=== PATIENT | male | born 1975 | race Caucasian/White ===

== ENCOUNTER 2016-11-09 10:31 | Inpatient (IN) | payer OTHER ==
[2016-11-09 10:55] VITALS: BMI 33.0
--- NOTE | 2016-11-09 13:52 | HP ---
COWS - Scale Resting Pulse: 1= [place] 81-100 Sweatin= Chills/Flushing Restless Observation: 3= Extraneous Movement Pupil Size: 2= Moderately Dilated Bone or Joint Aches: 4=Acute Joint/Muscle Pain Runny Nose/ Eye Tearin= Nasal Congestion GI Upset > 30mins: 1= Stomach Cramp Tremor Observation: 1= Tremor [place], Not Seen Yawning Observation: 2= >3x During Session Anxiety or Irritability: 2=Irritable/Anxious Goose Flesh Skin: 0=Smooth Skin COWS Score: 18 Admission ROS BHS - HPI Chief Complaint: DETOX TX FOR OPIOID DEPENDENCE Allergies/Adverse Reactions: Allergies Allergy/AdvReac Type Severity Reaction Status Date / Time No Known Allergies Allergy Verified 11/09/16 11:09 History of Present Illness: 41 Y/O MALE WITH A HX OF PERCOCET AND OXYCONTIN DEPENDENCE SEEKING DETOX TX Exam Limitations: No Limitations - Ebola screening Have you traveled outside of the country in the last 21 days: No Have you had contact with anyone from an Ebola affected area: No Have you been sick,other than usual withdrawal symptoms: No Do you have a fever: No - Review of Systems Constitutional: Chills, Loss of Appetite, Night Sweats, Changes in sleep EENT: reports: Blurred Vision (WEARS GLASSES), Tearing, Nose Congestion Respiratory: reports: No Symptoms reported Cardiac: reports: Lightheadedness (DUE TO WITHDAWAL SX) GI: reports: Nausea, Poor Appetite, Poor Fluid Intake, Vomiting : reports: No Symptoms Reported Musculoskeletal: reports: Back Pain, Joint Pain, Muscle Pain, Neck Pain Integumentary: reports: No Symptoms Reported Neuro: reports: Numbness, Tingling, Dizziness Endocrine: reports: No Symptoms Reported Hematology: reports: No Symptoms Reported Psychiatric: reports: Orientated x3, Anxious, Depressed Other Systems: Reviewed and Negative Patient History - Patient Medical History Hx Anemia: No Hx Asthma: No Hx Chronic Obstructive Pulmonary Disease (COPD): No Hx Cancer: No Hx Cardiac Disorders: No Hx Congestive Heart Failure: No Hx Hypertension: No Hx Hypercholesterolemia: No Hx Pacemaker: No HX Cerebrovascular Accident: No Hx Seizures: No Hx Dementia: No Hx Diabetes: Yes (NIDDM) Hx Gastrointestinal Disorders: Yes (acid reflux-PREVACID) Hx Liver Disease: No Hx Genitourinary Disorders: No Hx Sexually Transmitted Disorders: No (DENIES) Hx Renal Disease (ESRD): No Hx Thyroid Disease: No Hx Human Immunodeficiency Virus (HIV): (NEGATIVE HX) Hx Hepatitis C: No Hx Depression: Yes (ON SEROQUEL) Hx Suicide Attempt: No (DENIES) Hx Bipolar Disorder: No Hx Schizophrenia: No - Patient Surgical History Past Surgical History: No Hx Neurologic Surgery: No Hx Cataract Extraction: No Hx Cardiac Surgery: No Hx Lung Surgery: No Hx Breast Surgery: No Hx Breast Biopsy: No Hx Abdominal Surgery: No Hx Appendectomy: No Hx Cholecystectomy: No Hx Genitourinary Surgery: No Hx Orthopedic Surgery: No Anesthesia Reaction: No - PPD History Previous Implant?: Yes Documented Results: Negative w/proof Implanted On Prior [facility] Admission?: Yes Date: 11/10/15 Results: 0 mm PPD to be Administered?: Yes - Reproductive History Patient is a Female of Child Bearing Age (11 -55 yrs old): No (MALE) - Smoking Cessation Smoking history: Current every day smoker Have you smoked in the past 12 months: Yes Aproximately how many cigarettes per day: 20 Hx Chewing Tobacco Use: No (past history) Initiated information on smoking cessation: Yes 'Breaking Loose' booklet given: 11/09/16 - Substance & Tx. History Hx Substance Use: Yes (PERCOCETS/OXY/MARIJUANA) Substance Use Type: Marijuana, Opiates Hx Substance Use Treatment: Yes ([facility]-DETOX) - Substances Abused Percocet Route: Oral Frequency: Daily Amount used: 15 tabs. (30 mg.) Age of first use: 26 Date of Last Use: 11/09/16 Marijuana Route: Smoking Frequency: Daily Amount used: $40 Age of first use: 15 Date of Last Use: 11/09/16 Family Disease History - Family Disease History Family Disease History: Other: Father (ALCOHOL), Mother (DSA) Admission Physical Exam BHS - Vital Signs Vital Signs: Vital Signs - 24 hr 11/09/16 10:48 Temperature 97.3 F L Pulse Rate 97 H Respiratory 20 Rate Blood Pressure 119/75 - Physical General Appearance: Yes: Moderate Distress, Irritable, Anxious HEENTM: Yes: EOMI, Normocephalic, CRISTOBAL, Pharynx Normal, Nasal Congestion, Rhinorrhea Respiratory: Yes: Chest Non-Tender, Lungs Clear, Normal Breath Sounds, No Respiratory Distress Neck: Yes: Supple, Trachea in good position Breast: Yes: Breast Exam Deferred Cardiology: Yes: Regular Rhythm, Regular Rate, S1, S2 Abdominal: Yes: Normal Bowel Sounds, Non Tender, Soft Genitourinary: Yes: Other (N/C) Musculoskeletal: Yes: full range of Motion, Gait Steady Extremities: Yes: Normal Range of Motion, Non-Tender Neurological: Yes: rag inspector II-XII NML intact, Fully Oriented, Alert, Motor Strength 5/5 Integumentary: Yes: Dry, Warm Lymphatic: Yes: Within Normal Limits - Diagnostic (1) Neck pain Current Visit: Yes Status: Acute Comment: PT STATES PAINFULL WHEN DETOXING (2) Nicotine dependence Current Visit: Yes Status: Acute Qualifiers: Nicotine product type: cigarettes Substance use status: in withdrawal Qualified Code(s): F17.213 - Nicotine dependence, cigarettes, with withdrawal (3) Opioid dependence with withdrawal Current Visit: Yes Status: Acute (4) Cannabis dependence, uncomplicated Current Visit: Yes Status: Acute (5) Shoulder pain, right Current Visit: Yes Status: Acute Qualifiers: Chronicity: acute Qualified Code(s): M25.511 - Pain in right shoulder Comment: STATES PAIN ESPECIALLY WHEN DETOXING Cleared for Admission S - Detox or Rehab [facility] Level of Care: Medically Managed Detox Regimen/Protocol: Methadone S Breath Alcohol Content Breath Alcohol Content: 0 Urine Drug Screen - Results Drug Screen Negative: No Urine Drug Screen Results: THC-Marijuana, OXY-Oxycodone
[2016-11-09] MEDS ORDERED: guaiFENesin/D-METHORPHAN HB 10 ML UNIT-DOSE CUPS PO PRN (14:00)
[2016-11-09] MEDS ORDERED: IBUPROFEN 400 MG TABLET (FP) PO PRN (14:00)
[2016-11-09] MEDS ORDERED: MAGNESIUM CITRATE 300 ML BOTTLE PO PRN (14:00)
[2016-11-09] MEDS ORDERED: hydrOXYzine PAMOATE 25 MG CAPSULE (FP) PO PRN (14:00)
[2016-11-09] MEDS ORDERED: METHADONE HCL 10 MG TABLET (FOR DETOX USE ONLY) PO ONE ×2 (14:00→23:00)
[2016-11-09] MEDS ORDERED: ACETAMINOPHEN 325 MG TABLET (FP) PO PRN (14:00)
[2016-11-09] MEDS ORDERED: MAGNESIUM HYDROX 2400MG/30ML ORAL SUSPENSION 30 ML CUP PO PRN (14:00)
[2016-11-09] MEDS ORDERED: P-EPHED 60MG/TRIPROLIDI 2.5MG TABLET PO PRN (14:00)
[2016-11-09] MEDS ORDERED: LOPERAMIDE HCL 2 MG CAPSULE PO PRN (14:00)
[2016-11-09] MEDS ORDERED: MAG HYDROX/AL HYDROX/SIMETH 30 ML UNIT-DOSE CUP PO PRN (14:00)
[2016-11-09] MEDS ORDERED: MENTHOL/PHENOL 1 EACH UD MM PRN (14:00)
[2016-11-09] MEDS: diazePAM 5 MG TABLET PO PRN ×2 (14:30→18:58)
[2016-11-09] MEDS: NICOTINE 21 MG/24 HOURS TOPICAL PATCH TD SCH (14:33)
[2016-11-09] MEDS ORDERED: INSULIN (NOVOLOG) ASPART 100 UNITS/ML 10ML VIAL ONE ×2 (17:08→20:58)
[2016-11-09] MEDS: glipiZIDE 5 MG TABLET (FP) PO SCH (17:14)
[2016-11-09] MEDS: metFORMIN HCL 500 MG TABLET (FP) PO SCH (17:14)
[2016-11-09] MEDS: INSULIN SLIDING SCALE (NOVOLOG) 1 VIAL SQ SCH ×2 (17:15→22:40)
[2016-11-09 20:10] LABS: URINE APPEARANCE CLEAR; URINE BILIRUBIN NEGATIVE (NEGATIVE); URINE BLOOD NEGATIVE (NEGATIVE); URINE COLOR STRAW; URINE GLUCOSE (UA) 3+ (NEGATIVE); URINE KETONE TRACE (NEGATIVE); URINE LEUK ESTERASE NEGATIVE (NEGATIVE); URINE NITRITE NEGATIVE (NEGATIVE); URINE PROTEIN NEGATIVE (NEGATIVE); URINE UROBILINOGEN NEGATIVE E.U./dl (0.2-1.0)
--- NOTE | 2016-11-09 22:21 | PN ---
BHS Progress Note Note: received nurse call requests bgm order continue detox
[2016-11-09] MEDS: THIAMINE HCL 100 MG TABLET (FP) PO SCH (22:39)
[2016-11-10] MEDS: diazePAM 5 MG TABLET PO PRN ×4 (05:41→22:27)
[2016-11-10] MEDS: glipiZIDE 5 MG TABLET (FP) PO SCH (06:31)
[2016-11-10] MEDS: metFORMIN HCL 500 MG TABLET (FP) PO SCH ×2 (06:31→17:07)
[2016-11-10] MEDS: INSULIN SLIDING SCALE (NOVOLOG) 1 VIAL SQ SCH ×4 (07:49→22:27)
[2016-11-10] MEDS ORDERED: CYCLOBENZAPRINE HCL 10 MG TABLET (FP) PO ONE (09:17)
[2016-11-10] MEDS ORDERED: METHADONE HCL 10 MG TABLET (FOR DETOX USE ONLY) PO ONE (10:00)
[2016-11-10 10:19] LABS: MCH 27.3 pg (25.7-33.7); MCHC 33.7 g/dl (32.0-35.9); MEAN PLT VOLUME 8.7 fl (7.5-11.1); PLATELET COUNT 305 K/MM3 (134-434); RDW 13.3 % (11.9-15.9); WHITE BLOOD COUNT 12.7 K/mm3 (4.0-10.0)
[2016-11-10 10:28] LABS: ALBUMIN 3.9 g/dl (3.4-5.0); ALK PHOS 86 U/L (45-117); ANION GAP 11 (8-16); BILIRUBIN,TOTAL 0.3 mg/dL (0.2-1.0); CALCIUM 9.1 mg/dL (8.5-10.1); CO2 23 mmol/L (21-32); SGOT/AST 6 U/L (15-37); SGPT/ALT 17 U/L (12-78); TOT PROT 7.2 g/dl (6.4-8.2)
[2016-11-10] MEDS: cloNIDine HCL 0.1 MG TABLET PO SCH ×2 (10:28→22:26)
[2016-11-10] MEDS: PRENATAL VITAMINS W/ FOLIC ACID TABLET (FP) PO SCH (10:28)
[2016-11-10] MEDS: NAPROXEN 500 MG TABLET (FP) PO SCH ×2 (10:28→22:26)
[2016-11-10] MEDS: NICOTINE 21 MG/24 HOURS TOPICAL PATCH TD SCH (10:28)
[2016-11-10] MEDS: PARoxetine HCL 20 MG TABLET (FP) PO SCH (10:29)
[2016-11-10] MEDS: NICOTINE POLACRILEX 4 MG GUM BUC PRN ×3 (11:03→22:31)
--- NOTE | 2016-11-10 11:13 | EKG ---
Test Reason : Blood Pressure : / mmHG Vent. Rate : 093 BPM Atrial Rate : 093 BPM P-R Int : 164 ms QRS Dur : 090 ms QT Int : 348 ms P-R-T Axes : 051 046 062 degrees QTc Int : 432 ms NORMAL SINUS RHYTHM EARLY REPOLARIZATION WHEN COMPARED WITH ECG OF 09-NOV-2016 14:33, SINUS RHYTHM HAS REPLACED JUNCTIONAL RHYTHM Confirmed by MARCOS LORENZANA MD ([id number]) on 11/10/2016 11:13:10 AM Referred By: Db Richardson Confirmed By:MARCOS LORENZANA MD
--- NOTE | 2016-11-10 11:15 | EKG ---
Test Reason : Blood Pressure : / mmHG Vent. Rate : 090 BPM Atrial Rate : 091 BPM P-R Int : 000 ms QRS Dur : 084 ms QT Int : 328 ms P-R-T Axes : 000 044 076 degrees QTc Int : 401 ms POOR DATA QUALITY, INTERPRETATION MAY BE ADVERSELY AFFECTED NONSPECIFIC ST ABNORMALITY NO PREVIOUS ECGS AVAILABLE Confirmed by MARCOS LORENZANA MD ([id number]) on 11/10/2016 11:14:57 AM Referred By: Db Richardson Confirmed By:MARCOS LORENZANA MD
--- NOTE | 2016-11-10 11:25 | PN ---
S COWS - Scale Resting Pulse: 1= [place] 81-100 Sweatin= Chills/Flushing Restless Observation: 3= Extraneous Movement Pupil Size: 2= Moderately Dilated Bone or Joint Aches: 4=Acute Joint/Muscle Pain Runny Nose/ Eye Tearin= Nasal Congestion GI Upset > 30mins: 1= Stomach Cramp Tremor Observation of Outstretched Hands: 1= Tremor [place], Not Seen Yawning Observation: 2= >3x During Session Anxiety or Irritability: 2=Irritable/Anxious Goose Flesh Skin: 0=Smooth Skin COWS Score: 18 BHS Progress Note (SOAP) Subjective: ANXIETY,IRRITABILITY,MODERATE TO SEVERE NECK/RIGHT SHOULDER PAIN X 2 DAYS, INTERMITTENT SLEEP. Objective: 11/10/16 11:24 Vital Signs Temperature 97.6 F 11/10/16 09:55 Pulse Rate 88 11/10/16 09:55 Respiratory Rate 18 11/10/16 09:55 Blood Pressure 150/94 11/10/16 09:55 O2 Sat by Pulse Oximetry (%) Laboratory Last Values WBC 12.7 K/mm3 (4.0-10.0) H D 11/10/16 06:00 RBC 5.33 M/mm3 (4.00-5.60) 11/10/16 06:00 Hgb 14.6 GM/dL (11.7-16.9) 11/10/16 06:00 Hct 43.2 % (35.4-49) 11/10/16 06:00 MCV 81.0 fl (80-96) 11/10/16 06:00 MCHC 33.7 g/dl (32.0-35.9) 11/10/16 06:00 RDW 13.3 % (11.9-15.9) 11/10/16 06:00 Plt Count 305 K/MM3 (134-434) D 11/10/16 06:00 MPV 8.7 fl (7.5-11.1) 11/10/16 06:00 POC Glucometer 233 UNITS (()) 11/10/16 05:41 Urine Color Straw 11/09/16 13:00 Urine Appearance Clear 11/09/16 13:00 Urine pH 6.0 (5.0-8.0) 11/09/16 13:00 Ur Specific [place] 1.039 (1.001-1.035) H 11/09/16 13:00 Urine Protein Negative (NEGATIVE) 11/09/16 13:00 Urine Glucose (UA) 3+ (NEGATIVE) H 11/09/16 13:00 Urine Ketones Trace (NEGATIVE) H 11/09/16 13:00 Urine Blood Negative (NEGATIVE) 11/09/16 13:00 Urine Nitrite Negative (NEGATIVE) 11/09/16 13:00 Urine Bilirubin Negative (NEGATIVE) 11/09/16 13:00 Urine Urobilinogen Negative E.U./dl (0.2-1.0) 11/09/16 13:00 Ur Leukocyte Esterase Negative (NEGATIVE) 11/09/16 13:00 Assessment: 11/10/16 11:24 WITHDRAWAL SX Plan: CONTINUE DETOX NAPROSYN AND FLEXERIL DIRECTED.
[2016-11-10] MEDS ORDERED: INSULIN (NOVOLOG) ASPART 100 UNITS/ML 10ML VIAL ONE ×3 (11:48→23:00)
[2016-11-10 11:54] LABS: GLUCOSE,RANDOM 461 mg/dL (74-106)
--- NOTE | 2016-11-10 12:26 | CONSULT ---
[facility] Psychiatric Consult - Data Date of interview: 11/10/16 Admission source: [facility] Identifying data: Readmission to [facility] for this 41 y/o male seeking detox treatment on for opioid and marijuana dependence.Patient is ,a father of three,domiciled and employed. Substance Abuse History: - Smoking Cessation. Smoking history: Current every day smoker. Have you smoked in the past 12 months: Yes. Aproximately how many cigarettes per day: 20. Hx Chewing Tobacco Use: No (past history). Initiated information on smoking cessation: Yes. 'Breaking Loose' booklet given: . - Substance & Tx. History. Hx Substance Use: Yes (PERCOCETS/OXY/MARIJUANA) . Substance Use Type: Marijuana, Opiates. Hx Substance Use Treatment: Yes ( [facility]-DETOX). - Substances Abused. Percocet. Route: Oral. Frequency: Daily. Amount used: 15 tabs. (30 mg.). Age of first use: 26. Date of Last Use : 11/09/16. Marijuana. Route: Smoking. Frequency: Daily. Amount used: $ 40. Age of first use: 15. Date of Last Use: 11/09/16. Confirmed by patient in this ssession. Medical History: Diabetes mellitus,GERD and a history of inguinal herniorraphy. Psychiatric History: No history of psychiatric hospitalizations.Used to be followed at the [facility] in [place].Diagnosed with MDD, Anxiety Disorder and OCD as per self-report.Mr Herron admits to past exposure to lexapro,abilify,xanax,paxil and seroquel.Dropped out of OPD care for several years (except for xanax prescribed by his long time primary care physician).No history of suicide attempts.Moderate insomnia remains an ongoing issue. Physical/Sexual Abuse/Trauma History: Patient denies. Additional Comment: Urine Drug Screen Results: THC-Marijuana, OXY- Oxycodone.Noted. Mental Status Exam - Mental Status Exam Alert and Oriented to: Time, Place, Person Cognitive Function: Good Patient Appearance: Well Groomed Mood: Hopeful, Euthymic Affect: Appropriate, Normal Range Patient Behavior: Fatigued, Appropriate, Cooperative Speech Pattern: Clear, Appropriate Voice Loudness: Normal Thought Process: Intact, Goal Oriented Thought Disorder: Not Present Hallucinations: Denies Suicidal Ideation: Denies Homicidal Ideation: Denies Insight/Judgement: Fair Sleep: Poorly, Difficulty falling asleep Appetite: Good Muscle strength/Tone: Normal Gait/Station: Normal Psychiatric Findings - Problem List ([place] 1, 2,3) (1) Cannabis dependence, uncomplicated Current Visit: Yes Status: Acute (2) Nicotine dependence Current Visit: Yes Status: Acute Qualifiers: Nicotine product type: cigarettes Substance use status: in withdrawal Qualified Code(s): F17.213 - Nicotine dependence, cigarettes, with withdrawal (3) Opioid dependence with withdrawal Current Visit: Yes Status: Acute (4) MDD (major depressive disorder) Current Visit: Yes Status: Chronic (5) OCD (obsessive compulsive disorder) Current Visit: No Status: Acute (6) Benzodiazepine abuse Current Visit: No Status: Acute (7) Substance induced mood disorder Current Visit: Yes Status: Acute (8) Left inguinal hernia Current Visit: Yes Status: Chronic (9) Low back pain Current Visit: Yes Status: Chronic (10) Umbilical hernia Current Visit: No Status: Chronic - Initial Treatment Plan Initial Treatment Plan: Psychoeducation.Detoxification.Medications : paxil 20 mg po daily + seroquel 100 mg po hs (patient's request).Side effects/benefits discussed with the patient.He agrees with this plan.Observation.
[2016-11-10] MEDS: CYCLOBENZAPRINE HCL 10 MG TABLET (FP) PO SCH ×2 (13:08→22:26)
[2016-11-10] MEDS: QUEtiapine FUMARATE 100 MG TABLET (FP) PO SCH (22:26)
[2016-11-10] MEDS: THIAMINE HCL 100 MG TABLET (FP) PO SCH (22:26)
[2016-11-11] MEDS: glipiZIDE 5 MG TABLET (FP) PO SCH (06:14)
[2016-11-11] MEDS: metFORMIN HCL 500 MG TABLET (FP) PO SCH ×2 (06:14→17:23)
[2016-11-11] MEDS: CYCLOBENZAPRINE HCL 10 MG TABLET (FP) PO SCH ×3 (06:14→22:37)
[2016-11-11] MEDS: diazePAM 5 MG TABLET PO PRN ×4 (06:14→22:36)
[2016-11-11] MEDS ORDERED: INSULIN (NOVOLOG) ASPART 100 UNITS/ML 10ML VIAL ONE ×4 (06:17→21:14)
[2016-11-11] MEDS: NICOTINE POLACRILEX 4 MG GUM BUC PRN ×5 (06:19→21:25)
[2016-11-11] MEDS: INSULIN SLIDING SCALE (NOVOLOG) 1 VIAL SQ SCH ×4 (06:55→22:35)
[2016-11-11] MEDS ORDERED: METHADONE HCL 5 MG TABLET (FOR DETOX USE ONLY) PO ONE (10:00)
[2016-11-11] MEDS: PARoxetine HCL 20 MG TABLET (FP) PO SCH (10:21)
[2016-11-11] MEDS: cloNIDine HCL 0.1 MG TABLET PO SCH ×2 (10:21→22:37)
[2016-11-11] MEDS: NAPROXEN 500 MG TABLET (FP) PO SCH ×2 (10:21→22:37)
[2016-11-11] MEDS: NICOTINE 21 MG/24 HOURS TOPICAL PATCH TD SCH (10:21)
[2016-11-11] MEDS: PRENATAL VITAMINS W/ FOLIC ACID TABLET (FP) PO SCH (10:21)
--- NOTE | 2016-11-11 16:10 | PN ---
S COWS - Scale Resting Pulse: 1= [place] 81-100 Sweatin= Chills/Flushing Restless Observation: 0= Sits Still Pupil Size: 0= Normal to Room Light Bone or Joint Aches: 2= Severe Diffuse Aches Runny Nose/ Eye Tearin= Nasal Congestion GI Upset > 30mins: 0= None Tremor Observation of Outstretched Hands: 2= Slight Tremor Visible Yawning Observation: 1= 1-2x During Session Anxiety or Irritability: 1=Feels Anxious/Irritable Goose Flesh Skin: 3=Piloerection COWS Score: 12 S Progress Note (SOAP) Subjective: Sweating, Body aches, Tremors, Interrupted sleep. Objective: PT. A & O X 3, OBSERVED AMBULATING ON UNIT. NO SIGNS OF ACUTE INFECTION NOTED. 11/11/16 16:07 Vital Signs Temperature 97 F L 11/11/16 14:50 Pulse Rate 91 H 11/11/16 14:50 Respiratory Rate 18 11/11/16 14:50 Blood Pressure 129/80 11/11/16 14:50 O2 Sat by Pulse Oximetry (%) Laboratory Last Values WBC 12.7 K/mm3 (4.0-10.0) H D 11/10/16 06:00 RBC 5.33 M/mm3 (4.00-5.60) 11/10/16 06:00 Hgb 14.6 GM/dL (11.7-16.9) 11/10/16 06:00 Hct 43.2 % (35.4-49) 11/10/16 06:00 MCV 81.0 fl (80-96) 11/10/16 06:00 MCHC 33.7 g/dl (32.0-35.9) 11/10/16 06:00 RDW 13.3 % (11.9-15.9) 11/10/16 06:00 Plt Count 305 K/MM3 (134-434) D 11/10/16 06:00 MPV 8.7 fl (7.5-11.1) 11/10/16 06:00 Sodium 132 mmol/L (136-145) L 11/10/16 06:00 Potassium 4.5 mmol/L (3.5-5.1) 11/10/16 06:00 Chloride 98 mmol/L (98-107) 11/10/16 06:00 Carbon Dioxide 23 mmol/L (21-32) D 11/10/16 06:00 Anion Gap 11 (8-16) 11/10/16 06:00 BUN 15 mg/dL (7-18) D 11/10/16 06:00 Creatinine 1.0 mg/dL (0.7-1.3) 11/10/16 06:00 Creat Clearance w eGFR > 60 (>60) 11/10/16 06:00 POC Glucometer 317 UNITS (()) 11/11/16 11:32 Random Glucose 461 mg/dL (74-106) H* D 11/10/16 06:00 Calcium 9.1 mg/dL (8.5-10.1) 11/10/16 06:00 Total Bilirubin 0.3 mg/dL (0.2-1.0) D 11/10/16 06:00 AST 6 U/L (15-37) L D 11/10/16 06:00 ALT 17 U/L (12-78) D 11/10/16 06:00 Alkaline Phosphatase 86 U/L (45-117) 11/10/16 06:00 Total Protein 7.2 g/dl (6.4-8.2) 11/10/16 06:00 Albumin 3.9 g/dl (3.4-5.0) 11/10/16 06:00 Urine Color Straw 11/09/16 13:00 Urine Appearance Clear 11/09/16 13:00 Urine pH 6.0 (5.0-8.0) 11/09/16 13:00 Ur Specific [place] 1.039 (1.001-1.035) H 11/09/16 13:00 Urine Protein Negative (NEGATIVE) 11/09/16 13:00 Urine Glucose (UA) 3+ (NEGATIVE) H 11/09/16 13:00 Urine Ketones Trace (NEGATIVE) H 11/09/16 13:00 Urine Blood Negative (NEGATIVE) 11/09/16 13:00 Urine Nitrite Negative (NEGATIVE) 11/09/16 13:00 Urine Bilirubin Negative (NEGATIVE) 11/09/16 13:00 Urine Urobilinogen Negative E.U./dl (0.2-1.0) 11/09/16 13:00 Ur Leukocyte Esterase Negative (NEGATIVE) 11/09/16 13:00 RPR Titer Nonreactive (NONREACTIVE) 11/10/16 06:00 LABS NOTED. 11/11/16 16:10 Assessment: 11/11/16 16:09 WITHDRAWAL SYMPTOMS. Plan: CONTINUE DETOX. ADVISED PT. TO FOLLOW-UP WITH DREDGEMASTER / REHAB MEDICAL PROVIDER AFTER DISCHARGE FROM DETOX FOR GENERAL MEDICAL ASSESSMENT AND FOR ABNORMAL LAB VALUES AND FOR HISTORY OF DIABETES.
[2016-11-11] MEDS: QUEtiapine FUMARATE 100 MG TABLET (FP) PO SCH (22:37)
[2016-11-11] MEDS: THIAMINE HCL 100 MG TABLET (FP) PO SCH (22:37)
[2016-11-12] MEDS: diazePAM 5 MG TABLET PO PRN ×2 (05:52→10:47)
[2016-11-12] MEDS: CYCLOBENZAPRINE HCL 10 MG TABLET (FP) PO SCH ×3 (05:52→22:16)
[2016-11-12] MEDS: INSULIN SLIDING SCALE (NOVOLOG) 1 VIAL SQ SCH ×4 (07:58→22:15)
[2016-11-12] MEDS: metFORMIN HCL 500 MG TABLET (FP) PO SCH ×2 (07:58→16:30)
[2016-11-12] MEDS: glipiZIDE 5 MG TABLET (FP) PO SCH (08:01)
[2016-11-12] MEDS ORDERED: METHADONE HCL 5 MG TABLET (FOR DETOX USE ONLY) PO ONE (10:00)
[2016-11-12] MEDS: PRENATAL VITAMINS W/ FOLIC ACID TABLET (FP) PO SCH (10:43)
[2016-11-12] MEDS: cloNIDine HCL 0.1 MG TABLET PO SCH ×2 (10:44→22:16)
[2016-11-12] MEDS: NAPROXEN 500 MG TABLET (FP) PO SCH ×2 (10:44→22:16)
[2016-11-12] MEDS: PARoxetine HCL 20 MG TABLET (FP) PO SCH (10:44)
[2016-11-12] MEDS: NICOTINE 21 MG/24 HOURS TOPICAL PATCH TD SCH (10:44)
[2016-11-12] MEDS: NICOTINE POLACRILEX 4 MG GUM BUC PRN ×2 (10:44→17:46)
[2016-11-12] MEDS ORDERED: INSULIN (NOVOLOG) ASPART 100 UNITS/ML 10ML VIAL ONE ×2 (12:08→21:43)
--- NOTE | 2016-11-12 13:37 | PN ---
BHS Progress Note (SOAP) Subjective: Sweating,interrupted sleep,restless Objective: 11/12/16 13:36 Vital Signs - 8 hr 11/12/16 11/12/16 06:31 11:55 Temperature 96 F L 95.5 F L Pulse Rate 84 80 Respiratory 18 19 Rate Blood Pressure 124/79 112/70 Laboratory Tests 11/09/16 11/09/16 11/09/16 11:26 13:00 16:27 WBC RBC Hgb Hct MCV MCHC RDW Plt Count MPV Sodium Potassium Chloride Carbon Dioxide Anion Gap BUN Creatinine Creat Clearance w eGFR POC Glucometer 501 379 Random Glucose Calcium Total Bilirubin AST ALT Alkaline Phosphatase Total Protein Albumin Urine Color Straw Urine Appearance Clear Urine pH 6.0 Ur Specific [place] 1.039 H Urine Protein Negative Urine Glucose (UA) 3+ H Urine Ketones Trace H Urine Blood Negative Urine Nitrite Negative Urine Bilirubin Negative Urine Urobilinogen Negative Ur Leukocyte Esterase Negative RPR Titer 11/10/16 11/10/16 11/10/16 05:41 06:00 06:00 WBC 12.7 H D RBC 5.33 Hgb 14.6 Hct 43.2 MCV 81.0 MCHC 33.7 RDW 13.3 Plt Count 305 D MPV 8.7 Sodium 132 L Potassium 4.5 Chloride 98 Carbon Dioxide 23 D Anion Gap 11 BUN 15 D Creatinine 1.0 Creat Clearance w eGFR > 60 POC Glucometer 233 Random Glucose 461 H* D Calcium 9.1 Total Bilirubin 0.3 D AST 6 L D ALT 17 D Alkaline Phosphatase 86 Total Protein 7.2 Albumin 3.9 Urine Color Urine Appearance Urine pH Ur Specific [place] Urine Protein Urine Glucose (UA) Urine Ketones Urine Blood Urine Nitrite Urine Bilirubin Urine Urobilinogen Ur Leukocyte Esterase RPR Titer 11/10/16 11/10/16 11/10/16 06:00 11:20 16:26 WBC RBC Hgb Hct MCV MCHC RDW Plt Count MPV Sodium Potassium Chloride Carbon Dioxide Anion Gap BUN Creatinine Creat Clearance w eGFR POC Glucometer 259 217 Random Glucose Calcium Total Bilirubin AST ALT Alkaline Phosphatase Total Protein Albumin Urine Color Urine Appearance Urine pH Ur Specific [place] Urine Protein Urine Glucose (UA) Urine Ketones Urine Blood Urine Nitrite Urine Bilirubin Urine Urobilinogen Ur Leukocyte Esterase RPR Titer Nonreactive 11/10/16 11/11/16 11/11/16 21:31 06:13 11:32 WBC RBC Hgb Hct MCV MCHC RDW Plt Count MPV Sodium Potassium Chloride Carbon Dioxide Anion Gap BUN Creatinine Creat Clearance w eGFR POC Glucometer 277 227 317 Random Glucose Calcium Total Bilirubin AST ALT Alkaline Phosphatase Total Protein Albumin Urine Color Urine Appearance Urine pH Ur Specific [place] Urine Protein Urine Glucose (UA) Urine Ketones Urine Blood Urine Nitrite Urine Bilirubin Urine Urobilinogen Ur Leukocyte Esterase RPR Titer 11/11/16 11/11/16 11/12/16 16:33 21:02 05:51 WBC RBC Hgb Hct MCV MCHC RDW Plt Count MPV Sodium Potassium Chloride Carbon Dioxide Anion Gap BUN Creatinine Creat Clearance w eGFR POC Glucometer 230 241 199 Random Glucose Calcium Total Bilirubin AST ALT Alkaline Phosphatase Total Protein Albumin Urine Color Urine Appearance Urine pH Ur Specific [place] Urine Protein Urine Glucose (UA) Urine Ketones Urine Blood Urine Nitrite Urine Bilirubin Urine Urobilinogen Ur Leukocyte Esterase RPR Titer 11/12/16 12:06 WBC RBC Hgb Hct MCV MCHC RDW Plt Count MPV Sodium Potassium Chloride Carbon Dioxide Anion Gap BUN Creatinine Creat Clearance w eGFR POC Glucometer 273 Random Glucose Calcium Total Bilirubin AST ALT Alkaline Phosphatase Total Protein Albumin Urine Color Urine Appearance Urine pH Ur Specific [place] Urine Protein Urine Glucose (UA) Urine Ketones Urine Blood Urine Nitrite Urine Bilirubin Urine Urobilinogen Ur Leukocyte Esterase RPR Titer labs noted Assessment: 11/12/16 13:36 Withdrawal sx. Plan: Continue detox
[2016-11-12] MEDS: THIAMINE HCL 100 MG TABLET (FP) PO SCH (22:16)
[2016-11-12] MEDS: QUEtiapine FUMARATE 100 MG TABLET (FP) PO SCH (22:16)
[2016-11-13] MEDS: CYCLOBENZAPRINE HCL 10 MG TABLET (FP) PO SCH (05:34)
[2016-11-13] MEDS: metFORMIN HCL 500 MG TABLET (FP) PO SCH (06:30)
[2016-11-13] MEDS: glipiZIDE 5 MG TABLET (FP) PO SCH (08:36)
[2016-11-13] MEDS: INSULIN SLIDING SCALE (NOVOLOG) 1 VIAL SQ SCH (08:37)
[2016-11-13] MEDS ORDERED: METHADONE HCL 5 MG TABLET (FOR DETOX USE ONLY) PO ONE (10:00)
[2016-11-13] MEDS ORDERED: METHADONE HCL 10 MG TABLET (FOR DETOX USE ONLY) PO ONE (10:00)
[2016-11-13 10:11] VITALS: BP 119/80; PULSE 89; TEMP 97.7
[2016-11-13] MEDS: cloNIDine HCL 0.1 MG TABLET PO SCH (10:27)
[2016-11-13] MEDS: NICOTINE 21 MG/24 HOURS TOPICAL PATCH TD SCH (10:27)
[2016-11-13] MEDS: NAPROXEN 500 MG TABLET (FP) PO SCH (10:27)
[2016-11-13] MEDS: PARoxetine HCL 20 MG TABLET (FP) PO SCH (10:27)
[2016-11-13] MEDS: PRENATAL VITAMINS W/ FOLIC ACID TABLET (FP) PO SCH (10:27)
--- NOTE | 2016-11-13 16:57 | DS ---
[facility] Detox Discharge Summary Admission Date: 11/09/16 Discharge Date: 11/13/16 - History Present History: Cannabis Dependence, Opioid Dependence Additional Comments: ADVISED PATIENT TO FOLLOW-UP WITH [facility] / REHAB MEDICAL PROVIDER AFTER DISCHARGE FROM DETOX FOR GENERAL MEDICAL ASSESSMENT AND FOR ABNORMAL LAB VALUES. Pertinent Past History: DM. - Physical Exam Results Vital Signs: Vital Signs Temperature 97.7 F 11/13/16 10:09 Pulse Rate 89 11/13/16 10:09 Respiratory Rate 18 11/13/16 10:09 Blood Pressure 119/80 11/13/16 10:09 O2 Sat by Pulse Oximetry (%) Pertinent Admission Physical Exam Findings: WITHDRAWAL SYMPTOMS. Laboratory Last Values WBC 12.7 K/mm3 (4.0-10.0) H D 11/10/16 06:00 RBC 5.33 M/mm3 (4.00-5.60) 11/10/16 06:00 Hgb 14.6 GM/dL (11.7-16.9) 11/10/16 06:00 Hct 43.2 % (35.4-49) 11/10/16 06:00 MCV 81.0 fl (80-96) 11/10/16 06:00 MCHC 33.7 g/dl (32.0-35.9) 11/10/16 06:00 RDW 13.3 % (11.9-15.9) 11/10/16 06:00 Plt Count 305 K/MM3 (134-434) D 11/10/16 06:00 MPV 8.7 fl (7.5-11.1) 11/10/16 06:00 Sodium 132 mmol/L (136-145) L 11/10/16 06:00 Potassium 4.5 mmol/L (3.5-5.1) 11/10/16 06:00 Chloride 98 mmol/L (98-107) 11/10/16 06:00 Carbon Dioxide 23 mmol/L (21-32) D 11/10/16 06:00 Anion Gap 11 (8-16) 11/10/16 06:00 BUN 15 mg/dL (7-18) D 11/10/16 06:00 Creatinine 1.0 mg/dL (0.7-1.3) 11/10/16 06:00 Creat Clearance w eGFR > 60 (>60) 11/10/16 06:00 POC Glucometer 206 UNITS (()) 11/13/16 05:34 Random Glucose 461 mg/dL (74-106) H* D 11/10/16 06:00 Calcium 9.1 mg/dL (8.5-10.1) 11/10/16 06:00 Total Bilirubin 0.3 mg/dL (0.2-1.0) D 11/10/16 06:00 AST 6 U/L (15-37) L D 11/10/16 06:00 ALT 17 U/L (12-78) D 11/10/16 06:00 Alkaline Phosphatase 86 U/L (45-117) 11/10/16 06:00 Total Protein 7.2 g/dl (6.4-8.2) 11/10/16 06:00 Albumin 3.9 g/dl (3.4-5.0) 11/10/16 06:00 Urine Color Straw 11/09/16 13:00 Urine Appearance Clear 11/09/16 13:00 Urine pH 6.0 (5.0-8.0) 11/09/16 13:00 Ur Specific [place] 1.039 (1.001-1.035) H 11/09/16 13:00 Urine Protein Negative (NEGATIVE) 11/09/16 13:00 Urine Glucose (UA) 3+ (NEGATIVE) H 11/09/16 13:00 Urine Ketones Trace (NEGATIVE) H 11/09/16 13:00 Urine Blood Negative (NEGATIVE) 11/09/16 13:00 Urine Nitrite Negative (NEGATIVE) 11/09/16 13:00 Urine Bilirubin Negative (NEGATIVE) 11/09/16 13:00 Urine Urobilinogen Negative E.U./dl (0.2-1.0) 11/09/16 13:00 Ur Leukocyte Esterase Negative (NEGATIVE) 11/09/16 13:00 RPR Titer Nonreactive (NONREACTIVE) 11/10/16 06:00 LABS NOTED. - Treatment Hospital Course: Detox Protocol Followed, Detoxed Safely, Responded well, Discharged Condition Good - Medication Discharge Medications: Ambulatory Orders Trazodone HCl [Desyrel -] 100 mg PO HS #30 tablet 11/09/15 Glipizide [Glucotrol -] 5 mg PO DAILY 11/09/16 Lansoprazole [Prevacid -] 30 mg PO DAILY 11/09/16 Metformin HCl [Glucophage -] 500 mg PO BID 11/09/16 Quetiapine Fumarate [Seroquel -] 100 mg PO HS 11/09/16 Paroxetine HCl [Paxil] 20 mg PO HS #30 tablet 11/10/16 Quetiapine Fumarate [Seroquel] 100 mg PO HS #30 tablet 11/10/16 - Diagnosis (1) Cannabis dependence Status: Acute (2) Neck pain Status: Acute (3) Nicotine dependence Status: Chronic Qualifiers: Nicotine product type: cigarettes Substance use status: uncomplicated Qualified Code(s): F17.210 - Nicotine dependence, cigarettes, uncomplicated (4) Opioid dependence with withdrawal Status: Acute (5) Substance induced mood disorder Status: Acute - AMA Did Patient Leave Against Medical Advice: No
[2016-11-14] MEDS ORDERED: METHADONE HCL 5 MG TABLET (FOR DETOX USE ONLY) PO ONE (06:00)
== END 2016-11-13 10:50 | disposition home or self-care (01) | DRG 773 ==
LOC: YASAS 10:31 → Y3N 11:55
PROVIDERS: ADMIT Internal Medicine; ATTEND Internal Medicine
PROC: HZ2ZZZZ Detoxification Services for Substance Abuse Treatment (ICD-10-PCS; principal; 2016-11-09)
DX: F11.23 Opioid dependence with withdrawal (principal); F14.20 Cocaine dependence, uncomplicated; F17.210 Nicotine dependence, cigarettes, uncomplicated; F19.24 Other psychoactive substance dependence with psychoactive substance-induced mood disorder; F33.9 Major depressive disorder, recurrent, unspecified; F42.9 Obsessive-compulsive disorder, unspecified; M54.2 Cervicalgia; K21.9 Gastro-esophageal reflux disease without esophagitis; E11.9 Type 2 diabetes mellitus without complications; M25.511 Pain in right shoulder; K40.90 Unilateral inguinal hernia, without obstruction or gangrene, not specified as recurrent; K42.9 Umbilical hernia without obstruction or gangrene; M54.5 Low back pain
CPT/HCPCS: 36415; 80053; 81003; 85027; 86593; 93005; 93010

== ENCOUNTER 2018-10-21 09:13 | Emergency (ER) | payer OTHER ==
[2018-10-21 09:30] VITALS: BP 143/98; PULSE 93; TEMP 97.9; BMI 34.9
--- NOTE | 2018-10-21 09:56 | PDOC ---
History of Present Illness - General Chief Complaint: Pain, Acute Stated Complaint: ABD PAIN Time Seen by Provider: 10/21/18 09:44 History Source: Patient Exam Limitations: No Limitations - History of Present Illness Travel History: No Initial Comments: 10/21/18 09:52 43y M hx of dm presents with 5 days of intermittent abdomianl pain. Pt states he woke up on with severe epigastric/periumbilical pain that is cramping/achiong/nawing in nature, lasted for several hours before resolving. seems to worsen with food intake. The pain returned on sunday, before resolving spontaneously and pt reucrred again today. Pt endorses feeling nauseus without vomtiing. pt endorses an episode of watery diarrhea this morning that was non bloody. There is no associated fever/chills, back pain, dysuria, testicular pain , cp, sob, diaphorsis. no recent travel or sick contacts. denoes etoh abuse former opiate abuser PMD dr. Shamir Rodgers Past History - Past Medical History Allergies/Adverse Reactions: Allergies Allergy/AdvReac Type Severity Reaction Status Date / Time Opioids - Morphine Analogues AdvReac Verified 10/21/18 10:27 No opiates please AdvReac Uncoded 10/21/18 09:28 Home Medications: Ambulatory Orders Glipizide [Glucotrol -] 5 mg PO BID 11/09/16 metFORMIN HCL [Glucophage -] 500 mg PO BID 11/09/16 Gabapentin 100 mg PO BID 10/21/18 Ranitidine [Zantac -] 150 mg PO BID 10/21/18 Sitagliptin Phosphate [Januvia -] 100 mg PO DAILY@0700 10/21/18 Anemia: No Asthma: No Cancer: No Cardiac Disorders: No CVA: No COPD: No CHF: No Dementia: No Diabetes: Yes (NIDDM) GI Disorders: Yes (acid reflux-PREVACID) Disorders: No HTN: No Hypercholesterolemia: No Kidney Stones: No Liver Disease: No Seizures: No Thyroid Disease: No - Surgical History Abdominal Surgery: No Appendectomy: No Cardiac Surgery: No Cholecystectomy: No Lung Surgery: No Neurologic Surgery: No Orthopedic Surgery: No - Reproductive History Testicular Surgery: No - Suicide/Smoking/Psychosocial Hx Smoking History: Unknown if ever smoked Have you smoked in the past 12 months: Yes Number of Cigarettes Smoked Daily: 20 'Breaking Loose' booklet given: 11/09/16 Hx Alcohol Use: No Drug/Substance Use Hx: Yes (PERCOCETS/OXY/MARIJUANA) Substance Use Type: Marijuana, Opiates Hx Substance Use Treatment: Yes ([facility]) Abd/GI Specific PMHX - Complaint Specific PMHX Hepatitis: No Pancreatitis: No Review of Systems - Review of Systems Able to Perform ROS?: Yes Comments:: 10/21/18 10:22 Constitutional - no reported Fever, Chills, HEENT: no reported vision changes, sore throat Respiratory: no reported cough, sob, hemoptysis Cardiac: no reported chest pain, palpitations, light headedness, leg swelling Abd/GI: + abd pain, nausea, diarrhea, no reported vomiting, blood per rectum, melena : no reported dysuria, frequency, discharge Musculskelatal - no reported back pain, joint swelling skin - no reported bruising, erythema, rash neurological: no reported headache, numbness, focal weakness, tingling, ataxia, hematologic: no reported easy bruising, easy bleeding *Physical Exam - Vital Signs Last Vital Signs Temp Pulse Resp BP Pulse Ox 97.9 F 93 H 22 H 143/98 98 10/21/18 09:29 10/21/18 09:29 10/21/18 09:29 10/21/18 09:29 10/21/18 09:29 - Physical Exam Comments: 10/21/18 10:25 GENERAL: The patient is awake, alert, and fully oriented, Nontoxic - in no acute distress. HEAD: Normocephalic, atraumatic. EYES: extraocular movements intact, sclera anicteric, conjunctiva clear. ENT: Normal voice, Moist mucous membranes. NECK: Normal range of motion, supple LUNGS: Breath sounds equal, clear to auscultation bilaterally. No wheezes, no rhonchi, no rales. HEART: Regular rate and rhythm, normal S1 and S2 without murmur, rub or gallop. ABDOMEN: Soft, large ventral hernia (no contents), small periumbilical hernia ( small soft mass that is mildly tender to palpation), no rebound/guarding, no cva tenderness EXTREMITIES: Normal range of motion, trace edema. NEUROLOGICAL: No facial assymetry, Normal speech, PSYCH: Normal mood, normal affect. SKIN: Warm, Dry, normal turgor, Moderate Sedation - Procedure Monitoring Vital Signs: Procedure Monitoring Vital Signs Temperature 97.9 F 10/21/18 09:29 Pulse Rate 93 H 10/21/18 09:29 Respiratory Rate 22 H 10/21/18 09:29 Blood Pressure 143/98 10/21/18 09:29 O2 Sat by Pulse Oximetry (%) 98 10/21/18 09:29 Heart Score/ECG Review - ECG Impressions Comment:: 10/21/18 10:47 Twelve-lead EKG was performed and reviewed by me. There is normal sinus rhythm with a normal rate. rate of 75 The axis is normal. The intervals are normal. There is normal R wave progression There are no ST or T wave abnormalities. Impression: Normal twelve-lead EKG ED Treatment Course - LABORATORY CBC & Chemistry Diagram: 10/21/18 10:00 10/21/18 10:00 Medical Decision Making - Medical Decision Making 10/21/18 10:28 suspect possible enteritis vs perimbuilical hernia will ck labs will reasess, consider imaging if persistently tender 10/21/18 11:40 labs noted for mildly elevated lipase, consider early pancreatitis possible the cause of his episatric pain pt is also on janeuvia that is associated iwth pancreatitis will PO challenge the pt and wilcall his PMD to discuss management of his janeuvia and outpatient management 10/21/18 11:57 Patient was able to tolerate juice and crackers without abdominal pain. Discussed with his primary care doctor (Dr. Rodgers) - agrees with outpatient management of mild pancreatitis no RUQ pain or bilirubin abnoramlities to suggest gall stones. will dc with supportive care and instructions to adnvance diet return precutions were discussed I discussed the physical exam findings, ancillary test results and final diagnoses with the patient. I answered all of the patient's questions. The patient was satisfied with the care received and felt comfortable with the discharge plan and treatment plan. The patient will call their primary care physician within 24 hours to arrange follow-up and will return to the Emergency Department with any new, persistent or worsening symptoms. *DC/Admit/Observation/Transfer Diagnosis at time of Disposition: Abdominal pain Qualifiers: Abdominal location: epigastric Qualified Code(s): R10.13 - Epigastric pain - Discharge Dispostion Disposition: HOME Condition at time of disposition: Improved Decision to Admit order: No - Referrals Referrals: Shamir Rodgers [Non Staff, Medical] - - Patient Instructions Printed Discharge Instructions: DI for Pancreatitis, DI for Abdominal Pain- Adult Additional Instructions: Return to the emergency department immediately with ANY new, persistent or worsening symptoms including worsening abdominal pain, fevers, inability to tolerate oral intake, chest pain, shortness of breath or any other concerns. Stay well hydrated. For the next 8-12 hours, only drink clears fluids/jello. You If you do well with that you can try some soup. You can add other foods slowly over the next few days. If you have any discomfort, go back to the previous food that you were comfortable with. If you have persistent or worsening pain,or any vomiting. come back to the Emergency Department Stop taking your Janeuvia You MUST call and follow up with your doctor today or tomorrow. Your emergency department visit is not complete without a followup with your doctor for reevaluation. Please make sure your doctor reviews the results of your emergency evaluation. Print Language: MOHAWK - Post Discharge Activity
[2018-10-21] MEDS ORDERED: ONDANSETRON 4 MG/2 ML VIAL IVPB ONE (10:07)
[2018-10-21] MEDS ORDERED: SODIUM CHLORIDE 1,000 ML IV ONE (10:07)
[2018-10-21] MEDS ORDERED: ACETAMINOPHEN 1000 MG/100 ML VIAL (NON FORMULARY) IVPB ONE (10:07)
[2018-10-21 10:32] LABS: BASO % 0.5 % (0-2.0); EOS % 1.2 % (0-4.5); HEMATOCRIT 45.4 % (35.4-49); HEMOGLOBIN 15.8 GM/dL (11.7-16.9); LYMPH % 13.9 % (8-40); MCH 27.3 pg (25.7-33.7); MCHC 34.7 g/dl (32.0-35.9); MEAN CELL VOLUME 78.6 fl (80-96); MEAN PLT VOLUME 7.6 fl (7.5-11.1); MONO % 7.6 % (3.8-10.2); NEUT % 76.8 % (42.8-82.8); PLATELET COUNT 323 K/MM3 (134-434); RBC 5.78 M/mm3 (4.00-5.60); RDW 14.3 % (11.9-15.9); WHITE BLOOD COUNT 10.8 K/mm3 (4.0-10.0)
[2018-10-21 10:54] LABS: ALBUMIN 4.2 g/dl (3.4-5.0); ALK PHOS 76 U/L (45-117); ANION GAP 6 MMOL/L (8-16); BILIRUBIN,TOTAL 0.6 mg/dL (0.2-1); BLOOD UREA NITROGEN 14 mg/dL (7-18); CALCIUM 9.5 mg/dL (8.5-10.1); CHLORIDE 102 mmol/L (98-107); CO2 28 mmol/L (21-32); CREATININE 0.9 mg/dL (0.55-1.3); GLUCOSE,RANDOM 140 mg/dL (74-106); LIPASE 561 U/L (73-393); POTASSIUM 4.3 mmol/L (3.5-5.1); SGOT/AST 6 U/L (15-37); SGPT/ALT 18 U/L (13-61); SODIUM 137 mmol/L (136-145)
[2018-10-21 12:25] LABS: URINE APPEARANCE CLEAR; URINE BILIRUBIN NEGATIVE (<2.0 mg/dL); URINE COLOR YELLOW; URINE GLUCOSE (UA) NEGATIVE (NEGATIVE); URINE KETONE TRACE (NEGATIVE); URINE LEUK ESTERASE NEGATIVE (NEGATIVE); URINE NITRITE NEGATIVE (NEGATIVE); URINE PROTEIN 1+ (NEGATIVE); URINE UROBILINOGEN NEGATIVE mg/dL (0.2-1.0)
[2018-10-21 12:33] LABS: URINE MUCUS RARE
--- NOTE | 2018-10-21 13:42 | EKG ---
Test Reason : Blood Pressure : / mmHG Vent. Rate : 075 BPM Atrial Rate : 075 BPM P-R Int : 150 ms QRS Dur : 090 ms QT Int : 360 ms P-R-T Axes : 003 023 041 degrees QTc Int : 402 ms NORMAL SINUS RHYTHM NORMAL ECG WHEN COMPARED WITH ECG OF 09-NOV-2016 17:55, NO SIGNIFICANT CHANGE WAS FOUND Confirmed by MACK FONSECA MD ([id number]) on 10/21/2018 1:42:05 PM Referred By: Confirmed By:MACK FONSECA MD
== END 2018-10-21 12:07 | disposition home or self-care (01) ==
LOC: JER 09:13
PROC: 3E033NZ Introduction of Analgesics, Hypnotics, Sedatives into Peripheral Vein, Percutaneous Approach (ICD-10-PCS; principal; 2018-10-21)
PROC: 3E033GC Introduction of Other Therapeutic Substance into Peripheral Vein, Percutaneous Approach (ICD-10-PCS; 2018-10-21)
DX: R10.13 Epigastric pain (principal); E11.9 Type 2 diabetes mellitus without complications; Z79.84 Long term (current) use of oral hypoglycemic drugs
CPT/HCPCS: 36415; 80053; 81003; 81015; 83690; 85025; 93005; 93010; 96374; 96375; 99283-25; J0131; J7030

== ENCOUNTER 2022-11-28 13:56 | Observation (INO) | payer OTHER ==
[2022-11-28] MEDS ORDERED: ACETAMINOPHEN 1000 MG/100 ML BAG IVPB ONE (16:46)
[2022-11-28] MEDS ORDERED: METOCLOPRAMIDE HCL INJECTION 10 MG/2 ML VIAL IVPB ONE (16:46)
[2022-11-28] MEDS ORDERED: ACETAMINOPHEN INJECTION 100 ML IVPB ONE (16:51)
[2022-11-28] MEDS ORDERED: METOCLOPRAMIDE HCL INJECTION 10 MG/2 ML VIAL ONE (16:51)
[2022-11-28] MEDS ORDERED: SODIUM CHLORIDE 0.9% 500 ML INFUS.BAG IV ONE (17:12)
[2022-11-28 17:22] LABS: BASO % 0.3 % (0-2.0); EOS % 0.8 % (0-4.5); HEMOGLOBIN 15.7 GM/dL (11.7-16.9); LYMPH % 8.4 % (8-40); MCH 26.1 pg (25.7-33.7); MCHC 32.7 g/dl (32.0-35.9); MEAN CELL VOLUME 79.8 fl (80-96); MEAN PLT VOLUME 7.5 fl (7.5-11.1); MONO % 6.4 % (3.8-10.2); NEUT % 84.1 % (42.8-82.8); PLATELET COUNT 307 10^3/uL (134-434); RBC 6.02 M/mm3 (4.00-5.60); WHITE BLOOD COUNT 18.6 K/mm3 (4.0-10.0)
[2022-11-28 17:41] LABS: ALBUMIN 4.2 g/dl (3.4-5.0); BLOOD UREA NITROGEN 11.6 mg/dL (7-18)
[2022-11-28 17:44] LABS: CREATININE 0.7 mg/dL (0.55-1.3)
[2022-11-28 17:45] LABS: BILIRUBIN,TOTAL 0.8 mg/dL (0.2-1); TOT PROT 7.9 g/dl (6.4-8.2)
[2022-11-28 18:49] LABS: ERYTHROCYTE SEDIMENTATION RATE 7 mm/hr (0-10)
[2022-11-28] MEDS ORDERED: KETOROLAC TROMETHAMINE 15 MG/ML VIAL IVPUSH ONE (20:33)
[2022-11-28] MEDS ORDERED: CEFTRIAXONE 2,000 MG in DEXTROSE 5%-WATER - 50 ML IVPB ONE (20:55)
[2022-11-28] MEDS ORDERED: CEFTRIAXONE 2 GM/100 ML BAG IVPB ONE (21:03)
[2022-11-28] MEDS ORDERED: KETOROLAC TROMETHAMINE 15 MG/ML VIAL ONE (21:03)
[2022-11-28] MEDS ORDERED: DOCUSATE SODIUM 100 MG CAPSULE (FP) PO PRN (23:44)
[2022-11-28] MEDS ORDERED: METOCLOPRAMIDE HCL INJECTION 10 MG/2 ML VIAL IVPUSH PRN (23:44)
[2022-11-29] MEDS: SODIUM CHLORIDE 1,000 ML IV SCH (02:32)
[2022-11-29] MEDS: KETOROLAC TROMETHAMINE 15 MG/ML VIAL IVPUSH PRN ×3 (03:10→16:55)
[2022-11-29 04:26] VITALS: BMI 30.5
[2022-11-29] MEDS: INSULIN SLIDING SCALE (NOVOLOG) 1 VIAL SQ SCH ×4 (07:06→21:55)
[2022-11-29 09:06] LABS: BASO % 0.2 % (0-2.0); EOS % 0.8 % (0-4.5); HEMATOCRIT 46.6 % (35.4-49); HEMOGLOBIN 15.4 GM/dL (11.7-16.9); LYMPH % 14.4 % (8-40); MCH 26.6 pg (25.7-33.7); MCHC 33.1 g/dl (32.0-35.9); MEAN CELL VOLUME 80.2 fl (80-96); MEAN PLT VOLUME 7.5 fl (7.5-11.1); MONO % 10.5 % (3.8-10.2); NEUT % 74.1 % (42.8-82.8); PLATELET COUNT 311 10^3/uL (134-434); RBC 5.81 M/mm3 (4.00-5.60); WHITE BLOOD COUNT 12.4 K/mm3 (4.0-10.0)
[2022-11-29 09:10] LABS: INR 1.14 (0.83-1.09); PROTHROMBIN TIME (PATIENT) 13.2 SEC (9.7-13.0)
[2022-11-29 09:13] LABS: ACTIVATED PTT 36.7 SECONDS (25.2-36.5)
[2022-11-29] MEDS: PANTOPRAZOLE 40 MG TABLET PO SCH (09:18)
[2022-11-29] MEDS: GABAPENTIN 100 MG CAPSULE PO SCH (09:18)
[2022-11-29] MEDS: RAMIPRIL 2.5 MG CAPSULE PO SCH (09:18)
[2022-11-29 09:31] LABS: BLOOD UREA NITROGEN 14.9 mg/dL (7-18); CALCIUM 9.2 mg/dL (8.5-10.1); MAGNESIUM 2.1 mg/dL (1.8-2.4)
[2022-11-29 09:34] LABS: PHOSPHOROUS 3.6 mg/dL (2.5-4.9)
[2022-11-29 09:36] LABS: CREATININE 0.8 mg/dL (0.55-1.3)
[2022-11-29 16:33] LABS: BF GLUCOSE (CSF ONLY) 86 mg/dL (40-70)
[2022-11-29] MEDS: CYCLOBENZAPRINE HCL 5 MG TABLET PO SCH ×2 (16:56→21:54)
[2022-11-29 17:17] LABS: CSF APPEARANCE CLEAR (CLEAR); CSF COLOR COLORLESS (COLORLESS); CSF WBC 1 mm3 (0-5)
[2022-11-29 19:59] VITALS: RESP 20
[2022-11-29] MEDS ORDERED: RIMEGEPANT SULFATE 75 MG TAB.RAPDIS SL PRN (20:48)
[2022-11-29] MEDS ORDERED: ROSUVASTATIN CA 5 MG TABLET PO SCH (22:00)
[2022-11-29] MEDS ORDERED: GABAPENTIN 300 MG CAPSULE PO SCH (22:00)
[2022-11-30] MEDS: SODIUM CHLORIDE 1,000 ML IV SCH (06:37)
[2022-11-30] MEDS: CYCLOBENZAPRINE HCL 5 MG TABLET PO SCH (07:06)
[2022-11-30] MEDS: INSULIN SLIDING SCALE (NOVOLOG) 1 VIAL SQ SCH ×2 (07:08→12:04)
[2022-11-30] MEDS: KETOROLAC TROMETHAMINE 15 MG/ML VIAL IVPUSH PRN (07:20)
[2022-11-30 08:12] VITALS: TEMP 98.1
[2022-11-30] MEDS: PANTOPRAZOLE 40 MG TABLET PO SCH (09:54)
[2022-11-30] MEDS: GABAPENTIN 100 MG CAPSULE PO SCH (09:54)
[2022-11-30] MEDS: RAMIPRIL 2.5 MG CAPSULE PO SCH (09:54)
[2022-11-30 09:58] VITALS: BP 109/81; PULSE 97
[2022-11-30] MEDS ORDERED: GABAPENTIN 300 MG CAPSULE PO SCH (10:50)
== END 2022-11-30 13:31 | disposition home or self-care (01) ==
LOC: JER 13:56 → JERBED 20:59 → INTOOBSV 20:59 → J8W 11-29 00:46
PROVIDERS: ADMIT Internal Medicine; ATTEND Internal Medicine
PROC: 3E03329 Introduction of Other Anti-infective into Peripheral Vein, Percutaneous Approach (ICD-10-PCS; principal; 2022-11-28)
PROC: 3E033NZ Introduction of Analgesics, Hypnotics, Sedatives into Peripheral Vein, Percutaneous Approach (ICD-10-PCS; 2022-11-28)
PROC: 3E0333Z Introduction of Anti-inflammatory into Peripheral Vein, Percutaneous Approach (ICD-10-PCS; 2022-11-28)
PROC: 3E033GC Introduction of Other Therapeutic Substance into Peripheral Vein, Percutaneous Approach (ICD-10-PCS; 2022-11-28)
PROC: 3E0337Z Introduction of Electrolytic and Water Balance Substance into Peripheral Vein, Percutaneous Approach (ICD-10-PCS; 2022-11-28)
PROC: 00JU3ZZ Inspection of Spinal Canal, Percutaneous Approach (ICD-10-PCS; 2022-11-28)
DX: G43.901 Migraine, unspecified, not intractable, with status migrainosus (principal); H66.91 Otitis media, unspecified, right ear; E11.9 Type 2 diabetes mellitus without complications; M54.2 Cervicalgia; R07.0 Pain in throat; F11.11 Opioid abuse, in remission; I10 Essential (primary) hypertension; G25.81 Restless legs syndrome; Z87.891 Personal history of nicotine dependence; Z88.6 Allergy status to analgesic agent
CPT/HCPCS: 0241U-QW; 36415; 62272; 70450-TC; 70498-TC; 70544-TC; 72141-TC; 80048; 80053; 82945; 82962; 83735; 84100; 84157; 85025; 85610; 85651; 85730; 86140; 86644; 87040; 87070; 87205; 87651; 93005; 93010; 96365; 96375; 96376; 99285-25; G0378; Q9967